=== PATIENT | female | born 1955 | race Caucasian/White ===

== ENCOUNTER 2016-10-15 11:18 | Emergency (ER) | payer OTHER ==
[2016-10-15 11:26] VITALS: RESP 20
--- NOTE | 2016-10-15 12:42 | C.PDOC ---
History Of Present Illness The patient, a 61 y/o female with no significant PMHx, presents to the ED for evaluation of pain, swelling, and redness overlying left 3rd MCP joint which developed over the past 4 days. Patient denies fever, chills, injury/trauma to the affected area, extremity numbness/weakness, or any sensorivascular deficits at this time. Time Seen by Provider: 10/15/16 11:33 Chief Complaint (Nursing): Finger,Hand,&Wrist History Per: Patient History/Exam Limitations: no limitations Onset/Duration Of Symptoms: Days (4), Gradual Current Symptoms Are (Timing): Still Present Quality: "Pain" Additional History Per: Patient Past Medical History Reviewed: Historical Data, Nursing Documentation, Vital Signs Vital Signs: Last Vital Signs Temp 97.7 F 10/15/16 12:43 Pulse 75 10/15/16 12:43 Resp 20 10/15/16 12:43 BP 121/84 10/15/16 12:43 Pulse Ox 98 10/15/16 12:56 - Medical History PMH: Arthritis, Asthma Surgical History: No Surg Hx Family History: States: Unknown Family Hx - Social History Hx Tobacco Use: No Hx Alcohol Use: No Hx Substance Use: No - Immunization History Hx Tetanus Toxoid Vaccination: No Hx Influenza Vaccination: No Hx Pneumococcal Vaccination: No Review Of Systems Except As Marked, All Systems Reviewed And Found Negative. Constitutional: Negative for: Fever, Chills Musculoskeletal: Positive for: Other (+left hand pain ) Skin: Positive for: Other (+swelling and redness overlying left 3rd MCP joint ) Neurological: Negative for: Weakness, Numbness Physical Exam - Physical Exam Appears: Non-toxic, No Acute Distress Skin: Warm, Dry, Other (+erythema to dorsal aspect of left hand, overlying 3rd MCP joint ) Extremity: No Normal ROM (limited to left 3rd digit secondary to discomfort ), Tenderness (dorsal aspect of left hand, overlying 3rd MCP joint ), Capillary Refill (less than 2 seconds ), No Deformity, Swelling (dorsal aspect of left hand, overlying 3rd MCP joint ) Neurological/Psych: Normal Speech Gait: Steady ED Course And Treatment O2 Sat by Pulse Oximetry: 98 (on RA) Pulse Ox Interpretation: Normal - Other Rad Left hand X-Ray: Interpreted by Me, Viewed By Me Interpretation: (+) mild DJD, no acute fx or dislocation Progress Note: Patient recieved Ultram PO and prednisone PO. Left hand XR ordered and reviewed. On re-eavluation, pt is afebrile, hemodynamicaly stable. Non-toxic. Left hand: exam c/w Left 3rd MCPJ edema, erythema, no proximal streaking, no flactulance. FAROM, no neurovascular deficits. xray- no acute fx or dislocation. Pt advised, ref. to F/u with PMD in 2-3 days for re-eavl. return if any new changes. Disposition Counseled Patient/Family Regarding: Studies Performed, Diagnosis, Need For Followup, Rx Given - Disposition Referrals: Hakeem Moran Jr., MD [Medical Doctor] - Disposition: HOME/ ROUTINE Disposition Time: 12:42 Condition: STABLE Additional Instructions: Take medication as prescribed Light duty to left hand Follow up with PMD in 2-3 days for re-evaluation. Return to ED if any worsening or new changes. 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 - Scribe Statement The provider has reviewed the documentation as recorded by the Scribe (Dora Rothman) All medical record entries made by the Scribe were at my direction and personally dictated by me. I have reviewed the chart and agree that the record accurately reflects my personal performance of the history, physical exam, medical decision making, and the department course for this patient. I have also personally directed, reviewed, and agree with the discharge instructions and disposition.
[2016-10-15 12:44] VITALS: BP 121/84; PULSE 75; TEMP 97.7
[2016-10-15 12:45] VITALS: O2SAT 98
--- NOTE | 2016-10-15 12:57 | RAD ---
PROCEDURE: Left Hand Radiographs. HISTORY: Pain. No history of recent/ related trauma provided COMPARISON: None. FINDINGS: BONES: Normal. No fracture. JOINTS: Normal. No osteoarthritic changes. SOFT TISSUES: Normal. OTHER FINDINGS: None. IMPRESSION: No significant or acute findings to account for/ related to the clinical presentation.
== END 2016-10-15 12:53 | disposition home or self-care (01) ==
LOC: C.ER 11:18
DX: M19.042 Primary osteoarthritis, left hand (principal); L03.114 Cellulitis of left upper limb

== ENCOUNTER 2017-02-12 10:06 | Emergency (ER) | payer OTHER ==
[2017-02-12 10:18] VITALS: TEMP 97.8
--- NOTE | 2017-02-12 10:26 | C.PDOC ---
History Of Present Illness 61 y/o female, whose past medical history includes arthritis and asthma, presents to the emergency department complaining of bilateral wrist and hand pain since yesterday. Patient reports she has recently done a lot of house work , and recycling such as tearing papers. She also states pain is worse with movement. Patient denies any trauma, or other complaints. Time Seen by Provider: 02/12/17 10:25 Chief Complaint (Nursing): Finger,Hand,&Wrist History Per: Patient History/Exam Limitations: no limitations Onset/Duration Of Symptoms: Days (1 day ago), Sudden Onset Current Symptoms Are (Timing): Still Present Quality: "Pain" Exacerbating Factor(s): Movement Past Medical History Reviewed: Historical Data, Nursing Documentation, Vital Signs Vital Signs: Last Vital Signs Temp 97.8 F 02/12/17 10:14 Pulse 72 02/12/17 11:08 Resp 18 02/12/17 11:08 BP 132/72 02/12/17 11:08 Pulse Ox 98 02/12/17 11:08 - Medical History PMH: Arthritis, Asthma Surgical History: No Surg Hx Family History: States: Unknown Family Hx - Social History Hx Tobacco Use: No Hx Alcohol Use: No Hx Substance Use: No - Immunization History Hx Tetanus Toxoid Vaccination: No Hx Influenza Vaccination: No Hx Pneumococcal Vaccination: No Review Of Systems Constitutional: Negative for: Fever Cardiovascular: Negative for: Chest Pain Respiratory: Negative for: Shortness of Breath Gastrointestinal: Negative for: Abdominal Pain Musculoskeletal: Positive for: Hand Pain (bilateral hand and wrist pain) Neurological: Negative for: Weakness, Numbness, Headache, Dizziness Physical Exam - Physical Exam Appears: Well, Non-toxic, No Acute Distress Skin: Warm, Dry, No Rash, No Ecchymosis Head: Atraumatic, Normacephalic Eye(s): bilateral: Normal Inspection Neck: Normal ROM Chest: Symmetrical Extremity: Normal ROM (pain with pronation and supination of wrists. ), Tenderness (overall non-focal tenderness on bilateral wrists), No Deformity, No Swelling Pulses: Left Radial: Normal, Right Radial: Normal Neurological/Psych: Oriented x3, Normal Speech, Normal Motor, Normal Sensation Gait: Steady ED Course And Treatment O2 Sat by Pulse Oximetry: 100 (room air) Pulse Ox Interpretation: Normal Medical Decision Making Medical Decision Making: Impression: bilateral wrist pain, no trauma Plan: * Toradol RE-assess: Patient reports the pain is improving. She has full ROM to both wrists, with no deformity. She is steady for discharge and recommend rest, ice and NSAIDs. Disposition Counseled Patient/Family Regarding: Diagnosis, Need For Followup, Rx Given - Disposition Disposition: HOME/ ROUTINE Disposition Time: 10:53 Condition: STABLE Additional Instructions: Vaya a clark mdico o la clnica en 2-5 jacobson sin falta, para mas evaluacin. Benson los medicamentos cayden indicado. Volver a la ros de emergencia en cualquier momento si los sntomas persisten o empeoran. Prescriptions: Ibuprofen [Motrin] 600 mg PO Q8 #30 tab Instructions: Tendinitis (ED) Forms: [employer] (Croatian) Print Language: BENGALI - POA Present On Arrival: None - Clinical Impression Clinical Impression: Wrist arthralgia, Tendonitis - Scribe Statement The provider has reviewed the documentation as recorded by the Scribe 02/12/2017 Scribe Attestation: Dulce Maria Dave MD Scribe Attestation: All medical record entries made by the Scribe were at my direction and personally dictated by me. I have reviewed the chart and agree that the record accurately reflects my personal performance of the history, physical exam, medical decision making, and the department course for this patient. I have also personally directed, reviewed, and agree with the discharge instructions and disposition.
[2017-02-12 11:09] VITALS: BP 132/72; PULSE 72; RESP 18
[2017-02-12 17:56] VITALS: O2SAT 100
== END 2017-02-12 11:10 | disposition home or self-care (01) ==
LOC: C.ER 10:06
DX: M77.9 Enthesopathy, unspecified (principal); M25.531 Pain in right wrist; M25.532 Pain in left wrist
CPT/HCPCS: 96372; 99285; J1885

== ENCOUNTER 2017-08-12 11:17 | Emergency (ER) | payer OTHER ==
[2017-08-12 11:25] VITALS: BP 124/86; PULSE 97; RESP 18; TEMP 97.8; O2SAT 98
--- NOTE | 2017-08-12 12:00 | C.PDOC ---
History Of Present Illness 62yo female, presents to ED with left arm redness and swelling, near her wrist. She denies any injury or trauma to the area. Patient states she has had similar symptoms 2x in the past. No numbness, tingling or weakness to her hand. She has no other medical complaints. Time Seen by Provider: 08/12/17 11:27 Chief Complaint (Nursing): Upper Extremity Problem/Injury History Per: Patient History/Exam Limitations: no limitations Onset/Duration Of Symptoms: Days Current Symptoms Are (Timing): Still Present Quality: "Pain" Exacerbating Factor(s): Strenuous Use Of Affected Area Past Medical History Reviewed: Historical Data, Nursing Documentation, Vital Signs Vital Signs: Last Vital Signs Temp 97.8 F 08/12/17 11:22 Pulse 97 H 08/12/17 11:22 Resp 18 08/12/17 11:22 BP 124/86 08/12/17 11:22 Pulse Ox 98 08/12/17 12:02 - Medical History PMH: Arthritis, Asthma Surgical History: No Surg Hx Family History: States: Unknown Family Hx - Social History Hx Tobacco Use: No Hx Alcohol Use: No Hx Substance Use: No - Immunization History Hx Tetanus Toxoid Vaccination: Yes Hx Influenza Vaccination: No Hx Pneumococcal Vaccination: No Review Of Systems Except As Marked, All Systems Reviewed And Found Negative. Constitutional: Negative for: Fever, Chills Musculoskeletal: Positive for: Hand Pain (left) Neurological: Negative for: Weakness, Numbness Physical Exam - Physical Exam Appears: Non-toxic, No Acute Distress Skin: Warm, Dry Head: Normacephalic Eye(s): bilateral: Normal Inspection Nose: Normal Oral Mucosa: Moist Neck: Normal ROM, Supple Chest: Symmetrical Cardiovascular: Rhythm Regular Respiratory: Normal Breath Sounds Extremity: Tenderness (tenderness and swelling noted to radial aspect of left wrist and arm. No streaking or fluctuance notes. ), Capillary Refill (< 2 seconds), No Deformity Neurological/Psych: Oriented x3 ED Course And Treatment O2 Sat by Pulse Oximetry: 98 (RA) Pulse Ox Interpretation: Normal Progress Note: Patient given colchicine, toradol and prednisone. Disposition - Disposition Referrals: [facility] at [facility] [Outside] Disposition: HOME/ ROUTINE Disposition Time: 12:11 Condition: GOOD Additional Instructions: Follow up with the medical doctor within 1-2 days, Return if worsened. 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 - Scribe Statement The provider has reviewed the documentation as recorded by the Scribe (Danya Shipman) Provider Attestation: All medical record entries made by the Scribe were at my direction and personally dictated by me. I have reviewed the chart and agree that the record accurately reflects my personal performance of the history, physical exam, medical decision making, and the department course for this patient. I have also personally directed, reviewed, and agree with the discharge instructions and disposition.
== END 2017-08-12 12:22 | disposition home or self-care (01) ==
LOC: C.ER 11:17
DX: M10.9 Gout, unspecified (principal)
CPT/HCPCS: 96372; 99283; J1885

== ENCOUNTER 2017-09-02 14:30 | Emergency (ER) | payer OTHER ==
[2017-09-02 14:34] VITALS: BMI 24.4
[2017-09-02 14:35] VITALS: BP 169/92; RESP 18
[2017-09-02] MEDS ORDERED: Albuterol-Ipratrop 3 mg / 0.5 (3 ml) UD IH STA (15:08)
[2017-09-02] MEDS ORDERED: Albuterol-Ipratrop 3 mg / 0.5 (3 ml) UD ONE (15:43)
[2017-09-02 16:05] LABS: BASO % 0.9 % (0.0-2.0); EOS # 0.4 K/uL (0.0-0.7); EOS % 9.2 % (0.0-4.0); HEMOGLOBIN 11.7 g/dL (11.0-16.0); LYMPH # 1.7 K/uL (1.0-4.3); MEAN CELL VOLUME 81.6 fL (81.0-99.0); MEAN CORPUSCULAR HEMOGLOBIN 26.9 pg (27.0-31.0); MEAN PLATELET VOLUME 9.1 fL (7.2-11.7); MONO # 0.3 K/uL (0.0-0.8); MONO % 5.9 % (0.0-10.0); NEUT # 2.4 K/uL (1.8-7.0); NRBC % 0.1 % (0.0-2.0); RBC 4.35 Mil/uL (3.80-5.20); RED CELL DISTRIBUTION WIDTH 16.1 % (11.5-14.5); WHITE BLOOD COUNT 4.8 K/uL (4.8-10.8)
[2017-09-02 16:14] LABS: ALB/GLOB RATIO 1.1 (1.0-2.1); ALBUMIN 4.1 g/dL (3.5-5.0); ALT/SGPT 14 U/L (9-52); AST/SGOT 22 U/L (14-36); BLOOD UREA NITROGEN 13 mg/dL (7-17); CALCIUM 9.6 mg/dl (8.6-10.4); GFR AFRICAN-AMERICAN > 60; GFR NON-AFRICAN AMERICAN > 60; LIPASE 97 U/L (23-300)
[2017-09-02 16:25] LABS: B-TYPE NATRIURETIC PEPTIDE 46.1 pg/mL (0-900)
--- NOTE | 2017-09-02 16:36 | C.PDOC ---
Time Seen by Provider: 09/02/17 14:42 Chief Complaint (Nursing): Cough, Cold, Congestion History Per: Patient Onset/Duration Of Symptoms: Days (about 2 weeks) Current Symptoms Are (Timing): Still Present Associated Symptoms: Cough, Nausea Severity: Moderate Additional History Per: Prior Records Past Medical History Reviewed: Historical Data, Nursing Documentation, Vital Signs Vital Signs: Last Vital Signs Temp 98.3 F 09/02/17 14:34 Pulse 65 09/02/17 14:34 Resp 18 09/02/17 14:34 BP 169/92 H 09/02/17 14:34 Pulse Ox 100 09/02/17 14:34 - Medical History PMH: Arthritis, Asthma Surgical History: No Surg Hx Family History: States: Unknown Family Hx - Social History Hx Tobacco Use: No Hx Alcohol Use: No Hx Substance Use: No - Immunization History Hx Tetanus Toxoid Vaccination: No Hx Influenza Vaccination: No Hx Pneumococcal Vaccination: No Review Of Systems Except As Marked, All Systems Reviewed And Found Negative. Constitutional: Negative for: Fever Cardiovascular: Negative for: Chest Pain Respiratory: Positive for: Cough. Negative for: Shortness of Breath, Hemoptysis Gastrointestinal: Positive for: Abdominal Pain (epigastric). Negative for: Vomiting, Diarrhea, Melena, Hematochezia, Hematemesis Genitourinary: Negative for: Dysuria Musculoskeletal: Negative for: Neck Pain, Back Pain, Leg Pain Skin: Negative for: Rash Neurological: Negative for: Weakness, Numbness Physical Exam - Physical Exam Appears: Non-toxic, No Acute Distress Skin: Normal Color, Warm, Dry, No Rash Head: Atraumatic, Normacephalic Eye(s): bilateral: Normal Inspection, PERRL, EOMI Neck: Normal ROM, Supple Cardiovascular: Rhythm Regular Respiratory: No Accessory Muscle Use, Wheezing (mild, scattered) Gastrointestinal/Abdominal: Soft, Tenderness (mild epigastric), No Distention, No Guarding, No Rebound Back: No CVA Tenderness Extremity: Normal ROM, No Pedal Edema, No Calf Tenderness Neurological/Psych: Oriented x3, Normal Motor, Normal Sensation ED Course And Treatment - Laboratory Results Result Diagrams: 09/02/17 15:42 09/02/17 15:42 Lab Interpretation: No Acute Changes ECG: Interpreted By Me, Viewed By Me ECG Rhythm: Sinus Rhythm ECG Interpretation: No Acute Changes Rate From EC O2 Sat by Pulse Oximetry: 100 Pulse Ox Interpretation: Normal - Radiology CXR: Interpreted by Me, Viewed By Me CXR Interpretation: Yes: No Acute Disease Progress Note: Pt feels much better after meds. Lungs clear. Reassessment Condition: Improved Progress - Interventions Interventions:: Observation - Medications Administered Inhaled nebulized: Anticholinergic, Beta-2 agonist Intravenous: Antiemetic, H-2 ana - Data Reviewed Data Reviewed: Lab, Diagnostic imaging, EKG, Old records - Patient Status Patient status: Mostly improved - Continuity of Care Discussed patient case with:: Patient, Family-HIPPA compliant, ED Nurse - Patient Plan Patient Plan: Discharge, F/U with PCP, Continue present meds Disposition Counseled Patient/Family Regarding: Studies Performed, Diagnosis, Need For Followup, Rx Given - Disposition Referrals: Dione Luis [Medical Doctor] - Disposition: HOME/ ROUTINE Disposition Time: 16:37 Condition: IMPROVED Additional Instructions: Follow up with your doctor this week for further evaluation and treatment. Return to the ER if you develop fever, shortness of breath, chest pain, vomiting , worsening of symptoms or if you have any other concerns. Prescriptions: Albuterol HFA [Ventolin HFA 90 mcg/actuation (8 g)] 2 puff IH Q4 PRN #1 unit PRN Reason: Wheezing Azithromycin [Zithromax] 1 dose PO DAILY #1 pkt Pantoprazole Sodium [Protonix] 40 mg PO DAILY #14 ect Instructions: Acute Bronchitis, Adult (DC) Forms: [employer] (Beninese) Print Language: GEORGIAN - Clinical Impression Clinical Impression: Bronchitis, Epigastric pain
[2017-09-02 16:49] VITALS: PULSE 68; TEMP 98.2; O2SAT 99
--- NOTE | 2017-09-02 16:54 | RAD ---
HISTORY: Cough COMPARISON: Comparison is made to 02/04/2014 TECHNIQUE: Chest PA and lateral FINDINGS: LUNGS: No evidence of new infiltrate or consolidation in the lungs. PLEURA: No significant pleural effusion identified. No pneumothorax apparent. CARDIOVASCULAR: Normal. OSSEOUS STRUCTURES: No significant abnormalities. VISUALIZED UPPER ABDOMEN: Normal. OTHER FINDINGS: None. IMPRESSION: No radiographic evidence of pneumonia
== END 2017-09-02 16:51 | disposition home or self-care (01) ==
LOC: C.ER 14:30
DX: J40 Bronchitis, not specified as acute or chronic (principal); R10.13 Epigastric pain

== ENCOUNTER 2018-03-28 20:35 | Emergency (ER) | payer MEDICARE, OTHER ==
[2018-03-28 20:35] VITALS: BMI 24.4
[2018-03-28 21:04] VITALS: O2SAT 97
[2018-03-28] MEDS ORDERED: Dexamethasone 4 mg/1 ml IM STA (22:02)
[2018-03-28] MEDS ORDERED: Naproxen 550 mg Tab PO STA (22:03)
[2018-03-28] MEDS ORDERED: Naproxen 550 mg Tab PO ONE (22:09)
[2018-03-28] MEDS ORDERED: Dexamethasone 4 mg/1 ml ONE (22:09)
[2018-03-28 22:40] VITALS: BP 133/79; PULSE 81; RESP 17; TEMP 98.7
--- NOTE | 2018-03-28 22:40 | C.PDOC ---
History Of Present Illness 62 year old female with PMHx of arthritis presents to the ED c/o pain and swelling to her left wrist and left shoulder pain. Patient reports this pain feels like "arthritis flare up". Patient denies injury, fall, trauma, rash, weakness, numbness. Time Seen by Provider: 03/28/18 21:31 Chief Complaint (Nursing): Upper Extremity Problem/Injury History Per: Patient History/Exam Limitations: no limitations Onset/Duration Of Symptoms: Days Current Symptoms Are (Timing): Still Present Quality: "Pain" Exacerbating Factor(s): Movement Recent travel outside of the [place]: No Additional History Per: Patient Past Medical History Reviewed: Historical Data, Nursing Documentation, Vital Signs Vital Signs: Last Vital Signs Temp 99.2 F 03/28/18 21:02 Pulse 75 03/28/18 21:02 Resp 20 03/28/18 21:02 BP 139/87 03/28/18 21:02 Pulse Ox 97 03/28/18 21:02 - Medical History PMH: Arthritis, Asthma Surgical History: No Surg Hx Family History: States: Unknown Family Hx - Social History Hx Tobacco Use: No Hx Alcohol Use: No Hx Substance Use: No - Immunization History Hx Tetanus Toxoid Vaccination: No Hx Influenza Vaccination: No Hx Pneumococcal Vaccination: No Review Of Systems Constitutional: Negative for: Fever, Chills Cardiovascular: Negative for: Chest Pain Respiratory: Negative for: Shortness of Breath Gastrointestinal: Negative for: Nausea, Vomiting Musculoskeletal: Positive for: Hand Pain Skin: Negative for: Rash Neurological: Negative for: Weakness, Numbness, Headache Physical Exam - Physical Exam Appears: Non-toxic, No Acute Distress Skin: Normal Color, Warm, Dry Head: Atraumatic, Normacephalic Eye(s): bilateral: Normal Inspection Extremity: Normal ROM (with pain to left wrist and shoulder), Tenderness (anterior aspect left wrist), Capillary Refill (< 2 seconds), Swelling (erythema to anterior aspect left wrist. No warmth, fluctuance, ) Neurological/Psych: Oriented x3, Normal Speech, Normal Cognition, Normal Motor, Normal Sensation Gait: Steady ED Course And Treatment O2 Sat by Pulse Oximetry: 97 (ON RA) Pulse Ox Interpretation: Normal Progress Note: Plan: - Decadron 10 mg IM. - Naproxen 550 mg PO. On reassessment, patient is resting comfortably, and is in no acute distress. Patient was instructed to follow up with physician/clinic in 1-2 days for further evaluation. 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 - Scribe Statement The provider has reviewed the documentation as recorded by the Scribe Mike Hugo All medical record entries made by the Scribe were at my direction and personally dictated by me. I have reviewed the chart and agree that the record accurately reflects my personal performance of the history, physical exam, medical decision making, and the department course for this patient. I have also personally directed, reviewed, and agree with the discharge instructions and disposition.
== END 2018-03-28 22:46 | disposition home or self-care (01) ==
LOC: C.ER 20:35
DX: M25.532 Pain in left wrist (principal); M25.512 Pain in left shoulder
CPT/HCPCS: 96372; 99284; J1100

== ENCOUNTER 2018-08-16 20:29 | Emergency (ER) | payer MEDICARE ==
[2018-08-16 20:29] VITALS: BMI 24.4
[2018-08-16 20:39] VITALS: BP 147/89; PULSE 75; RESP 20; TEMP 98.6; O2SAT 97
--- NOTE | 2018-08-16 20:52 | C.PDOC ---
History Of Present Illness 63 year old female presents to the ED for evaluation of pain, swelling and redness to the dorsal aspects of bilateral hands which began two days ago. Patient states she has been previously informed that she has arthritis. Patient denies any known trauma/injuries to the area. Time Seen by Provider: 08/16/18 20:49 Chief Complaint (Nursing): Upper Extremity Problem/Injury History Per: Patient History/Exam Limitations: no limitations Onset/Duration Of Symptoms: Days (2) Current Symptoms Are (Timing): Still Present Quality: "Pain" Additional History Per: Patient Past Medical History Reviewed: Historical Data, Nursing Documentation, Vital Signs Vital Signs: Last Vital Signs Temp 98.6 F 08/16/18 20:33 Pulse 75 08/16/18 20:33 Resp 20 08/16/18 20:33 BP 147/89 08/16/18 20:33 Pulse Ox 97 08/16/18 20:33 - Medical History PMH: Arthritis, Asthma Surgical History: No Surg Hx Family History: States: Unknown Family Hx - Social History Hx Tobacco Use: No Hx Alcohol Use: No Hx Substance Use: No - Immunization History Hx Tetanus Toxoid Vaccination: No Hx Influenza Vaccination: No Hx Pneumococcal Vaccination: No Review Of Systems Constitutional: Negative for: Fever, Chills, Weakness Musculoskeletal: Positive for: Hand Pain (dorsal aspect of bilateral hands, atraumatic ) Skin: Positive for: Other (swelling and redness to dorsal aspects of bilateral hands ) Neurological: Negative for: Weakness, Numbness Physical Exam - Physical Exam Appears: Well, Non-toxic, No Acute Distress Skin: Normal Color, Warm, No Rash Extremity: Normal ROM (range of motion of bilateral fingers and wrists intact, but limited secondary to pain ), Capillary Refill (less than 2 seconds ), Other (erythema to the central dorsal regions of bilateral hands, with mild soft swelling on both sides. no erythema or tenderness noted proximally. ) Pulses: Left Radial: Normal, Right Radial: Normal Neurological/Psych: Oriented x3, Normal Cranial Nerves (grossly intact ), Normal Motor, Normal Sensation ED Course And Treatment O2 Sat by Pulse Oximetry: 97 (on RA) Pulse Ox Interpretation: Normal Medical Decision Making Medical Decision Making: Patient's symptoms are treated as inflammatory arthritis. Toradol IM given for pain. On reassessment, patient is resting comfortably, showing no signs of distress and reports an improvement in her pain. Patient is advised that she needs to follow up to be evaluated for possibility of rheumatoid arthritis. Patient verbalizes understanding and is stable for discharge with Rx for NSAIDS. 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 - Scribe Statement The provider has reviewed the documentation as recorded by the Scribe (Dora Rothman) All medical record entries made by the Scribe were at my direction and personally dictated by me. I have reviewed the chart and agree that the record accurately reflects my personal performance of the history, physical exam, medical decision making, and the department course for this patient. I have also personally directed, reviewed, and agree with the discharge instructions and disposition.
== END 2018-08-16 21:24 | disposition home or self-care (01) ==
LOC: C.ER 20:29
DX: M19.90 Unspecified osteoarthritis, unspecified site (principal)
CPT/HCPCS: 96372; 99283; J1885